=== PATIENT | male | born 1975 | race Hispanic/Latino ===

== ENCOUNTER 2024-08-19 10:23 | Emergency (ER) | payer SELFPAY ==
[~2024-08-19] VITALS: Ht 170.2 cm; Wt 76.2 kg
--- NOTE | 2024-08-19 10:34 | ERN ---
ED Note History of Present Illness Stated Complaint: CHEST PAIN Chief Complaint: Chest Pain Time Seen by MD: 10:27 Dictation: PATIENT IS A 49-YEAR-OLD MALE WITH COMPLAINTS OF DIFFUSE ANTERIOR CHEST WALL PAIN IN MOVES FROM ONE SIDE TO THE OTHER ONSET WAS YESTERDAY WHILE HE WAS WATCHING TV. HE DENIES ANY BACK PAIN JAW PAIN. DOES STATE HIS LEFT ARM IS TINGLING HOWEVER HE STATES HE HAS A DIABETIC AND HE HAS GOT A HISTORY OF NEUROPATHY. HE DOES NOT TAKE ANY MEDICATIONS FOR HIS DIABETES NOR DOES HE HAVE A PRIMARY CARE DOCTOR. SAID WHEN HE HAD THE MEDICATIONS HE WAS NOT COMPLIANT WITH THE. DIABETES PATIENT STATES HE DID COCAINE FOUR DAYS AGO. Allergies: Coded Allergies: No Known Drug Allergies (Unverified Allergy, Unknown, 08/19/24) Past Medical History Past Medical History: Diabetes-Type II Additional Past Medical Hx: NONCOMPLIANT W/ MEDS Surgical History: Other Surgical History Other: RT HAND, ABD HERNIA RN Note Reviewed/Agreed w/PFSH: Yes Review of System Dictation CONSTITUTIONAL: NEGATIVE EXCEPT FOR HPI HEAD/FACE: NEGATIVE EXCEPT FOR HPI EENT: NEGATIVE EXCEPT FOR HPI RESPIRATORY: NEGATIVE EXCEPT FOR HPI CHEST PAIN GASTROINTESTINAL/ABDOMINAL: NEGATIVE EXCEPT FOR HPI GENITOURINARY: NEGATIVE EXCEPT FOR HPI MUSCULOSKELETAL: NEGATIVE EXCEPT FOR HPI INTEGUMENTARY: NEGATIVE EXCEPT FOR HPI NEUROLOGICAL/PSYCH: NEGATIVE EXCEPT FOR HPI NUMBNESS AND TINGLING LEFT HAND ARM HEMATOLOGIC/LYMPHATIC: NEGATIVE EXCEPT FOR HPI ALL SYSTEMS NEGATIVE, EXCEPT NOTED ABOVE. 13 POINT REVIEW OF SYSTEMS ASSESSED AND ALL NEGATIVE EXCEPT FOR ABOVE. Initial Vital Sign VS Vital Signs Date Time Temp Pulse Resp B/P (MAP) Pulse Ox O2 Delivery O2 Flow Rate FiO2 08/19/24 10:28 98.4 99 16 113/76 100 Room Air 0 08/19/24 10:33 21 Physical Exam Dictation VITAL SIGNS REVIEWED GENERAL APPEARANCE: ALERT, ORIENTED X 3, NO ACUTE DISTRESS, WELL DEVELOPED, NOURISHED. HEAD AND FACE: NON-TRAUMATIC. EYES: PERRL, PINK CONJUNCTIVAS, EYELID NO TRAUMA, ANTERIOR CHAMBER WITH ARCUS SENILIS. EARS: PINNAS INTACT AND NO SIGNS OF TRAUMA OR ERYTHEMA EAR CANALS CLEAR AND NO DISCHARGE TM NO ERYTHEMA NOSE: NO DISCHARGE, NO BLEEDING. OROPHARYNX: MOUTH NORMAL, TONGUE PINK, PHARYNX CLEAR,NO ERYTHEMA, TONSILS NO EXUDATES, NO ABSCESSES NOTED, MUCOUS MEMBRANE MOIST NECK: SUPPLE, NON-TENDER, NO THYROMEGALY, NO MASSES, NO JVD, NO BRUITS BREAST:DEFERRED CHEST:NO TENDERNESS, NO CREPITUS, NO PARADOXICAL MOVEMENT, NO RETRACTIONS LUNGS:CLEAR, WELL-VENTILATED, SYMMETRIC, NO RALES, NO WHEEZING, NO RHONCHI, NO STRIDOR, GOOD BREATH SOUNDS BILATERALLY HEART: REGULAR RATE, REGULAR RHYTHM, NO MURMUR, NO GALLOPS VASCULAR: NO PERIPHERAL EDEMA, ABDOMEN: SOFT, POSITIVE BOWEL SOUNDS, NONDISTENDED, NO GUARDING, NONTENDER, NO REBOUND, NO MASSES NO HEPATOMEGALY, NO SPLENOMEGALY, NO DUMONT'S SIGN, NO HERNIAS. RECTAL: DEFERRED GENITAL: DEFERRED NEUROLOGICAL: NORMAL SPEECH, MOTOR FUNCTION INTACT, SENSORY FUNCTION INTACT MUSCULOSKELETAL: NECK NONTENDER, FULL RANGE OF MOTION, BACK NONTENDER, FULL RANGE OF MOTION, EXTREMITIES: NONTENDER, FULL RANGE OF MOTION SKIN: COLOR PINK, DRY, NO TURGOR, NO RASH, NO LACERATIONS, NO ABRASIONS, NO CONTUSIONS. LYMPHATIC: DEFERRED Results (Laboratory/Radiology) Laboratory/Radiology Laboratory Tests Test 08/19/24 10:42 08/19/24 11:45 White Blood Count 8.0 K/uL (4.8-10.8) Red Blood Count 5.64 MIL/uL (4.50-6.20) Hemoglobin 16.8 g/dL (14.0-18.0) Hematocrit 49.0 % (42-54) Mean Corpuscular Volume 86.9 fL (79-99) Mean Corpuscular Hemoglobin 29.8 pg (27.0-33.0) Mean Corpuscular Hemoglobin Concent 34.3 g/dL (32.0-36.0) Red Cell Distribution Width 13.2 % (11.0-15.5) Platelet Count 227 K/uL (130-400) Mean Platelet Volume 11.3 fL (7.5-10.5) H Immature Granulocyte % (Auto) 1.1 % (0-1) H Neutrophils (%) (Auto) 60.9 % (40.0-77.0) Lymphocytes (%) (Auto) 25.9 % (21.0-51.0) Monocytes (%) (Auto) 8.9 % (3.0-13.0) Eosinophils (%) (Auto) 2.6 % (0.0-8.0) Basophils (%) (Auto) 0.6 % (0.0-5.0) Neutrophils # (Auto) 4.8 K/uL (1.8-7.7) Lymphocytes # (Auto) 2.1 K/uL (1.0-4.8) Monocytes # (Auto) 0.7 K/uL (0.1-1.0) Eosinophils # (Auto) 0.21 K/uL (0.00-0.70) Basophils # (Auto) 0.05 K/uL (0.00-0.20) Absolute Immature Granulocyte (auto 0.09 K/uL (0-1) Nucleated Red Blood Cells 0.0 % (0.0-0.19) Troponin I High Sensitivity 7 ng/L (4-75) < 4 ng/L (4-75) L Sodium Level 136 mmol/L (136-145) Potassium Level 4.8 mmol/L (3.5-5.1) Chloride Level 99 mmol/L (101-111) L Carbon Dioxide Level 30 mmol/L (21-32) Blood Urea Nitrogen 18 mg/dL (7-18) Creatinine 1.4 mg/dL (0.5-1.3) H Glomerular Filtration Rate Calc 61 mL/min (>90) Random Glucose 262 mg/dL (70-105) H Total Calcium 9.4 mg/dL (8.5-10.1) Labs Reviewed?: Yes EKG Comment: EKG SINUS RHYTHM/HEART RATE 95/LEFT FASCICULAR BLOCK/REPOLARIZATION SEEN IN ANTERIOR LEADS. 1308/2ND EKG SINUS RHYTHM/HEART RATE 76/LEFT FASCICULAR BLOCK/EARLY REPOLARIZATION SEEN IN LEADS V2 V3 AND V4. NO CHANGES FROM INITIAL EKG HEART SCORE IS TWO ED Course ED Course Orders Procedure Category Date Status Time Cbc With Differential LAB 08/19/24 Complete 10:30 12 Lead Ekg Tracing- EKG 08/19/24 Complete Technical 10:30 Troponin I High LAB 08/19/24 Complete Sensitivity 10:30 Aspirin 325mg Tab PHA 08/19/24 Complete (Aspirin 325mg Tab) 11:00 Nitroglycerin 0.4mg PHA 08/19/24 Complete Sl Tab (Nitrostat) 11:00 Basic Metabolic Panel LAB 08/19/24 Complete 11:18 Troponin I High LAB 08/19/24 Complete Sensitivity 11:32 12 Lead Ekg Tracing- EKG 08/19/24 Logged Technical 11:32 Current Medications Medications (Trade) Dose Ordered Sig/Todd Route PRN Reason Start Time Stop Time Status Last Admin Dose Admin Aspirin (Aspirin 325mg Tab) 325 mg ONCE ONCE PO 08/19/24 11:00 08/19/24 11:01 DC 08/19/24 10:45 Nitroglycerin (Nitrostat) 0.4 mg AD PRN SL CHEST PAIN 08/19/24 11:00 08/19/24 13:38 DC Vital Signs Date Time Temp Pulse Resp B/P (MAP) Pulse Ox O2 Delivery O2 Flow Rate FiO2 08/19/24 12:45 98.1 80 16 132/80 100 Room Air* 0 21 08/19/24 11:36 98.1 88 16 124/88 100 Room Air* 0 21 08/19/24 10:33 98.1 92 16 120/78 98 Room Air* 0 21 08/19/24 10:28 98.4 99 16 113/76 100 Room Air 0 1050/ DR. HUGH AWAD PAGED REGARDING ABNORMAL [id number]/ 1310/PATIENT DISCHARGED HOME WITH STRONG WARNING REGARDING USING OF COCAINE ESPECIALLY IT IS BEING CUT WITH FENTANYL HERE IN THE [facility]. HE WAS WARNED OF INSTANT STROKE, HEART ATTACK OR . ALSO STATES HE NEEDS TO CONTINUE HIS DIABETIC MEDICATIONS AND SEE HIS FAMILY DOCTOR. HEART Score Response (Comments) Value EKG: Repolarization changes 1 Risk Factors: 1-2 risk factors (+1) 1 Initial Troponin: Normal limit (0) 0 Total 2 Medical Decision Making MDM MDM: DIFFERENTIAL DIAGNOSIS: ACS/AMI/ARTERIAL SPASM SECONDARY TO COCAINE ABUSE, UTI/ELECTROLYTE IMBALANCE/DEHYDRATION RATIONALE: TESTS CONSIDERED AND ORDERED SECONDARY TO SHARED DECISION MAKING INCLUDE: LABS/EKG PREVIOUS OUTSIDE RECORDS REVIEWED: OLD ER VISITS. RISK OF COMPLICATION AND/OR MORBIDITY OR MORTALITY OF PATIENT MANAGEMENT: NONE MEDICATIONS-PER MEDICATION RECONCILIATION NEED FOR HOSPITALIZATION: PATIENT DOES NOT MEET CRITERIA FOR HOSPITALIZATION. NO NEED FOR EMERGENCY MAJOR/MINOR SURGERY: NO THERE ARE NO SOCIAL CONCERNS WITH THIS PATIENT. PATIENT USES COCAINE ALSO USES TOBACCO PRESCRIPTION DRUG MANAGEMENT PRESCRIPTIONS WILL INCLUDE SYMPTOMATIC CARE PATIENT'S PRIOR EXTERNAL MEDICAL RECORDS FROM OTHER ER VISITS WERE REVIEWED BY ME INDICATED. PRIOR TESTING AND RESULTS FROM PREVIOUS VISITS WERE REVIEWED. PRIOR TESTS WERE TAKEN INTO ACCOUNT WITH MEDICAL DECISION MAKING AND RESOURCE UTILIZATION, INDEPENDENT HISTORIAN/HISTORIANS WERE USED TO OBTAIN COMPLETE MEDICAL HISTORY. I INDEPENDENTLY INTERPRETED THE TEST THAT WERE PERFORMED, RESULTS WERE REVIEWED BY ME AND CONSIDERED FINDINGS ON RADIOLOGY IF ORDERED. MEDICAL MANAGEMENT AND EXAMINATION INTERPRETATION DISCUSSIONS WERE HAD BY ME WITH OTHER QUALIFIED HEALTHCARE PROFESSIONALS INDICATED FOR THE PATIENT'S CARE. DX & DISP Disposition: Discharge Departure Impression: Primary Impression: Atypical chest pain Additional Impressions: Cocaine abuse, Diabetes mellitus with hyperglycemia Condition: Stable Additional Instructions: FOLLOW-UP WITH PRIMARY CARE PROVIDER IN 1 TO 2 DAYS. TAKE MEDICATIONS DIRECTED HERE IN THE EMERGENCY ROOM. OKAY TO CONTINUE HOME MEDICATIONS UNLESS OTHERWISE DISCUSSED DURING YOUR VISIT IN THE EMERGENCY ROOM TODAY. RETURN TO YOUR NEAREST EMERGENCY ROOM IF SYMPTOMS WORSEN OR IF THERE IS NO IMPROVEMENT. CALL 911 IF YOU NEED IMMEDIATE ASSISTANCE. TAKE TYLENOL OR MOTRIN [id number] NEEDED AND IF NO CONTRAINDICATIONS ARE PRESENT. INCREASE ORAL HYDRATION. A WOUND CULTURE OR URINE CULTURE WAS ORDERED HERE IN THE EMERGENCY ROOM DEPARTMENT PLEASE FOLLOW-UP WITH PRIMARY CARE PROVIDER AND ADVISE THEM TO GET REPEAT PORTS FROM OUR FACILITY. IF YOU HAD ANY [place] WRAP/SPLINTS THAT WERE APPLIED HERE, PLEASE DO NOT REMOVE THEM UNTIL YOU SEE YOUR PRIMARY CARE OR SPECIALTY. STOP USING COCAINE OR RISK HEART ATTACK, STROKE, INSTANT . CONTINUE YOUR DIABETIC MEDICATIONS FROM YOUR PRIMARY CARE DOCTOR AND FOLLOW UP WITH HIM IN THE NEXT 1-2 DAYS. Referrals: SELF,REFERRAL (PCP) Time of Disposition: 13:12 I have reviewed the case, and I agree with, Diagnosis and Plan I performed a substantive portion of the visit. I have reviewed and personally made and approve the management plan that is documented in the notes by myself with AGAPITO/resident. I acknowledged full responsibility for the patient's management plan. KOJO MOORE NP August 19, 2024 10:34 NICOLASA MADRIGAL DO August 19, 2024 18:02
[2024-08-19] MEDS: ASPIRIN 325MG TAB PO ONE (10:45)
[2024-08-19] MEDS ORDERED: NITROGLYCERIN 0.4 MG SL TAB SL PRN (11:00)
[2024-08-19 11:39] LABS: BASOPHILS # (AUTO) 0.05 K/uL (0.00-0.20); BASOPHILS % (AUTO) 0.6 % (0.0-5.0); EOSINOPHILS # (AUTO) 0.21 K/uL (0.00-0.70); EOSINOPHILS % (AUTO) 2.6 % (0.0-8.0); IMMATURE GRANULOCYTE ABSOLUTE 0.09 K/uL (0-1); LYMPHOCYTES # (AUTO) 2.1 K/uL (1.0-4.8); LYMPHOCYTES % (AUTO) 25.9 % (21.0-51.0); MEAN CORPUSCULAR HEMOGLOBIN 29.8 pg (27.0-33.0); MEAN CORPUSCULAR HGB CONC 34.3 g/dL (32.0-36.0); MEAN CORPUSCULAR VOLUME 86.9 fL (79-99); MONOCYTES # (AUTO) 0.7 K/uL (0.1-1.0); MONOCYTES % (AUTO) 8.9 % (3.0-13.0); NEUTROPHILS # (AUTO) 4.8 K/uL (1.8-7.7); NEUTROPHILS % (AUTO) 60.9 % (40.0-77.0); PLATELET COUNT (AUTO) 227 K/uL (130-400); RED BLOOD CELL COUNT(AUTO) 5.64 MIL/uL (4.50-6.20); RED CELL DISTRIBUTION WIDTH 13.2 % (11.0-15.5)
[2024-08-19 12:14] LABS: CREATININE 1.4 mg/dL (0.5-1.3); POTASSIUM 4.8 mmol/L (3.5-5.1)
[2024-08-19 12:45] VITALS: BP 132/80; PULSE 80; RESP 16; TEMP 98; O2SAT 100
--- NOTE | 2024-08-19 12:53 | EKG ---
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
--- NOTE | 2024-08-20 06:31 | EKG ---
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
== END 2024-08-19 13:28 | disposition home or self-care (01) ==
LOC: EDH 10:23
DX: R07.89 Other chest pain (principal); F14.10 Cocaine abuse, uncomplicated; E11.65 Type 2 diabetes mellitus with hyperglycemia
CPT/HCPCS: 36415; 80048; 84484; 85025; 93005; 99284